=== PATIENT | female | born 1965 | race Caucasian/White ===

== ENCOUNTER 2016-08-07 09:00 | Emergency (ER) | payer BC ==
[2016-08-07] MEDS ORDERED: ADENOSINE 6 MG/2 ML VIAL ONE (09:11)
[2016-08-07] MEDS ORDERED: NS 1,000 ML IV ONE (09:12)
--- NOTE | 2016-08-07 09:16 | EDPHY ---
H & P Stated Complaint: SOB, DIZZY, TIGHT IN CHEST/THROAT- SUDDEN ONSET THIS AM Time Seen by Provider: 08/07/16 09:12 HPI/ROS: CHIEF COMPLAINT: Severe tachycardia, dyspnea, chest pain HISTORY OF PRESENT ILLNESS: The patient presents to the emergency department with complaints of severe tachycardia, dyspnea and chest pain which began acutely 30 minutes prior to arrival. The patient stated that she has had a slight upper respiratory infection with a mild dry nonproductive cough over the past several days. The patient was able to go on a hike today and felt fine prior to coming to work. The patient's symptoms began acutely. The patient has no prior history of arrhythmia. She has no history of thyroid disease. The patient denies asymmetric calf pain, pleuritic chest pain or history of PE or DVT. The patient reports her symptoms of palpitations and dyspnea are severe. REVIEW OF SYSTEMS: A comprehensive 10 point review of systems is otherwise negative aside from elements mentioned in the history of present illness. Source: Patient Exam Limitations: No limitations - Personal History LMP (Females 10-55): Hysterectomy Current Tetanus/Diphtheria Vaccine: Yes Current Tetanus Diphtheria and Acellular Pertussis (TDAP): Yes - Medical/Surgical History Hx Asthma: No Hx Chronic Respiratory Disease: No Hx Diabetes: No Hx Cardiac Disease: No Hx Renal Disease: No Hx Cirrhosis: No Hx Alcoholism: No Hx HIV/AIDS: No Hx Splenectomy or Spleen Trauma: No Other PMH: PMH- DENIES. PSH- hysterectomy, Shoulder, Knee - Social History Smoking Status: Never smoked - Physical Exam Exam: General Appearance: Alert, mild respiratory distress Eyes: Pupils equal and round no pallor or injection ENT, Mouth: Mucous membranes moist Respiratory: There are no retractions, lungs are clear to auscultation Cardiovascular: Tachycardic with heart rate greater than 180 Gastrointestinal: Abdomen is soft and nontender, no masses, bowel sounds normal Neurological: A&O, normal motor function, normal sensory exam, normal cranial nerves Skin: Warm and dry, no rashes Musculoskeletal: Neck is supple nontender Extremities: symmetrical, full range of motion Constitutional: Initial Vital Signs Temperature (C) 36.4 C 08/07/16 09:00 Heart Rate 204 H 08/07/16 09:00 Respiratory Rate 20 08/07/16 09:00 Blood Pressure 66/49 L 08/07/16 09:00 O2 Sat (%) 99 08/07/16 09:00 O2 Delivery Mode Room Air O2 (L/minute) 2 Allergies/Adverse Reactions: No Known Allergies Allergy (Verified 04/16/16 16:53) Home Medications: Medication Instructions Recorded NK [No Known Home Meds] 08/07/16 Medical Decision Making - Diagnostics EKG Interpretation: EKG: Complete interpretation has been separately recorded in the [employer] archive. Summary impression: Sinus tachycardia, rate 107 Imaging: Chest x-ray PA lateral: Images reviewed by myself, negative for focal infiltrate, heart failure or pneumothorax CT chest pulmonary angiogram: Negative for thromboembolic disease. Images reviewed by myself and discussed with radiologist Dr. Jag Denton ED Course/Re-evaluation: The patient presents to the emergency department with extreme tachycardia with a heart rate of 205. She was brought immediately to the resuscitation room. The patient was placed on a cage clerk noted to be in SVT at approximately 2:00 a.m. and 5-10. Her blood pressure at the time of arrival in the resuscitation room was 120/75. The patient was able to perform a Valsalva maneuver under my direction which resulted in a conversion of her SVT to a sinus rhythm. This sinus rhythm was demonstrated on a post conversion EKG. The patient was noted to have an elevated D-dimer of 2.3. The patient did have a CT pulmonary angiogram which was negative for PE. The patient has no clinical evidence of pneumonia. She has no evidence of heart failure or myocardial infarction. Patient was re-evaluated at 11:15 a.m.. She is feeling much better. At this point time she will be discharged home and follow up with our on-call briquetter operator. Differential Diagnosis: Differential diagnosis considered includes pulmonary embolism, supraventricular tachycardia, atrial fibrillation, myocardial infarction, thyrotoxicosis, pneumonia - Data Points Laboratory Results: Laboratory Results 08/07/16 09:15 08/07/16 09:15 08/07/16 08/07/16 08/07/16 09:15 09:15 09:15 WBC 9.44 10^3/uL 10^3/uL (3.80-9.50) RBC 4.83 10^6/uL 10^6/uL (4.18-5.33) Hgb 16.8 g/dL H g/dL (12.6-16.3) Hct 48.8 % H % (38.0-47.0) MCV 101.0 fL H fL (81.5-99.8) MCH 34.8 pg H pg (27.9-34.1) MCHC 34.4 g/dL g/dL (32.4-36.7) RDW 12.9 % % (11.5-15.2) Plt Count 316 10^3/uL 10^3/uL (150-400) MPV 9.8 fL fL (8.7-11.7) Neut % (Auto) 42.3 % % (39.3-74.2) Lymph % (Auto) 43.0 % % (15.0-45.0) Hudspeth % (Auto) 7.5 % % (4.5-13.0) Eos % (Auto) 6.4 % % (0.6-7.6) Baso % (Auto) 0.6 % % (0.3-1.7) Nucleat RBC Rel Count 0.0 % % (0.0-0.2) Absolute Neuts (auto) 3.99 10^3/uL 10^3/uL (1.70-6.50) Absolute Lymphs (auto) 4.06 10^3/uL H 10^3/uL (1.00-3.00) Absolute Monos (auto) 0.71 10^3/uL 10^3/uL (0.30-0.80) Absolute Eos (auto) 0.60 10^3/uL H 10^3/uL (0.03-0.40) Absolute Basos (auto) 0.06 10^3/uL 10^3/uL (0.02-0.10) Absolute Nucleated RBC 0.00 10^3/uL 10^3/uL (0-0.01) Immature Gran % 0.2 % % (0.0-1.1) Immature Gran # 0.02 10^3/uL 10^3/uL (0.00-0.10) D-Dimer 2.24 ug/mLFEU H ug/mLFEU (0.00-0.50) Sodium 141 mEq/L mEq/L (134-144) Potassium 4.1 mEq/L mEq/L (3.5-5.2) Chloride 101 mEq/L mEq/L (97-110) Carbon Dioxide 25 mEq/l mEq/l (22-31) Anion Gap 15 mEq/L mEq/L (8-16) BUN 12 mg/dL mg/dL (7-23) Creatinine 1.1 mg/dL H mg/dL (0.6-1.0) Estimated GFR 52 Glucose 199 mg/dL H mg/dL (70-100) Calcium 9.8 mg/dL mg/dL (8.5-10.4) Troponin I < 0.012 ng/mL ng/mL (0-0.034) TSH 1.180 uIU/mL uIU/mL (0.465-4.680) Medications Given: Discontinued Medications Sodium Chloride (Ns) 1,000 mls @ 0 mls/hr IV ONCE ONE PRN Reason: Wide Open Stop: 08/07/16 09:13 Last Admin: 08/07/16 09:12 Dose: 1,000 mls Departure - Departure Disposition: Home, Routine, Self-Care Clinical Impression: Supraventricular tachycardia Condition: Good Instructions: Supraventricular Tachycardia (ED) Additional Instructions: 1. Please schedule a follow-up appointment with the briquetter operator you have been referred to for further evaluation of your newly diagnosed supraventricular tachycardia. 2. Please return to the emergency department for any recurrent symptoms. Referrals: Garcia Michaels MD [Medical Doctor] - As per Instructions
[2016-08-07 09:26] LABS: % IMMATURE GRANULYOCYTES 0.2 % (0.0-1.1); ABSOLUTE IMMATURE GRANULOCYTES 0.02 10^3/uL (0.00-0.10); ADD DIFF? NO; ADD MORPH? NO; ADD SCAN? NO; ATYPICAL LYMPHOCYTE FLAG 10 (0-99); FRAGMENT RBC FLAG 0 (0-99); HEMATOCRIT 48.8 % (38.0-47.0); HEMOGLOBIN 16.8 g/dL (12.6-16.3); LEFT SHIFT FLG 0 (0-99); LIPEMIA HEMOLYSIS FLAG 90 (0-99); MEAN CELL HEMOGLOBIN 34.8 pg (27.9-34.1); MEAN CELL HEMOGLOBIN CONCENTR. 34.4 g/dL (32.4-36.7); MEAN PLATELET VOLUME 9.8 fL (8.7-11.7); PLATELET CLUMPS FLAG 0 (0-99); PLATELET COUNT 316 10^3/uL (150-400); RED BLOOD CELL COUNT 4.83 10^6/uL (4.18-5.33); RED CELL DISTRIBUTION WIDTH 12.9 % (11.5-15.2)
[2016-08-07 09:37] LABS: ANION GAP 15 mEq/L (8-16); CALCIUM 9.8 mg/dL (8.5-10.4); CARBON DIOXIDE 25 mEq/l (22-31); CHLORIDE 101 mEq/L (97-110); CREATININE 1.1 mg/dL (0.6-1.0); GLOMERULAR FILTRATION RATE 52; GLUCOSE 199 mg/dL (70-100); POTASSIUM 4.1 mEq/L (3.5-5.2); SODIUM 141 mEq/L (134-144)
[2016-08-07 09:48] LABS: TROPONIN I < 0.012 ng/mL (0-0.034)
[2016-08-07] MEDS ORDERED: IOPAMIDOL (ISOVUE-300) 100 ML BTL IV ONE (10:01)
--- NOTE | 2016-08-07 10:33 | CPEKG ---
Heart Rate: 107 RR Interval: 561 P-R Interval: 192 QRSD Interval: 92 QT Interval: 352 QTC Interval: 470 P Victor: 47 QRS Victor: 51 T Wave Victor: 11 EKG Severity - OTHERWISE NORMAL ECG - EKG Impression: SINUS TACHYCARDIA Electronically Signed By: Luis A Petersen 07-Aug-2016 14:32:06
[2016-08-07] MEDS ORDERED: NS 50 ML IV ONE (11:14)
[2016-08-07] MEDS ORDERED: ALTEPLASE 100 MG/100 ML VIAL IV ONE (11:14)
[2016-08-07] MEDS ORDERED: ALTEPLASE 1 MG/ML SYR IV ONE (11:14)
[2016-08-07 11:38] VITALS: BP 149/115; PULSE 91; RESP 20; TEMP 98.6; O2SAT 94
== END 2016-08-07 11:36 | disposition home or self-care (01) ==
DX: I47.1 Supraventricular tachycardia (principal)
CPT/HCPCS: J0153; Q9967

== ENCOUNTER 2016-12-20 12:30 | Emergency (ER) | payer BC ==
--- NOTE | 2016-12-20 12:49 | CPEKG ---
Heart Rate: 91 RR Interval: 659 P-R Interval: 168 QRSD Interval: 94 QT Interval: 380 QTC Interval: 468 P Sanford: 30 QRS Sanford: 36 T Wave Sanford: 2 EKG Severity - BORDERLINE ECG - EKG Impression: SINUS RHYTHM EKG Impression: PROBABLE LEFT ATRIAL ABNORMALITY Electronically Signed By: Bakari Glasgow 21-Dec-2016 13:57:16
[2016-12-20 12:58] LABS: % IMMATURE GRANULYOCYTES 0.1 % (0.0-1.1); ABSOLUTE IMMATURE GRANULOCYTES 0.01 10^3/uL (0.00-0.10); ADD DIFF? NO; ADD MORPH? NO; ADD SCAN? NO; ATYPICAL LYMPHOCYTE FLAG 0 (0-99); FRAGMENT RBC FLAG 0 (0-99); HEMATOCRIT 44.5 % (38.0-47.0); HEMOGLOBIN 15.2 g/dL (12.6-16.3); LEFT SHIFT FLG 0 (0-99); LIPEMIA HEMOLYSIS FLAG 90 (0-99); MEAN CELL HEMOGLOBIN 34.5 pg (27.9-34.1); MEAN CELL HEMOGLOBIN CONCENTR. 34.2 g/dL (32.4-36.7); MEAN CELL VOLUME 101.1 fL (81.5-99.8); MEAN PLATELET VOLUME 9.6 fL (8.7-11.7); PLATELET CLUMPS FLAG 0 (0-99); PLATELET COUNT 258 10^3/uL (150-400); RED CELL DISTRIBUTION WIDTH 13.3 % (11.5-15.2)
[2016-12-20] MEDS ORDERED: LORazepam 2 MG/ML INJ IVP ONE (13:01)
--- NOTE | 2016-12-20 13:04 | EDPHY ---
HPI/HX/ROS/PE/MDM Narrative: CHIEF COMPLAINT: Rapid heart rate, Neck fullness HPI: The patient is a 51-year-old female who complains of rapid heart rate today. The patient states she developed a fullness to the right side of her throat. This sensation radiates into her jaw and shoulder and causes subsequent headache. She attributed her symptoms to hypertension, though her pressures have remained around 140/90. Today she felt her heart rate was racing. According to her FitBit her HR was 80 at rest and increased to 113 on the car ride here. The patient had two episodes of tachycardia within the past year that resolved without intervention. She had a stress test done two weeks ago that was normal. REVIEW OF SYSTEMS: Aside from elements discussed in the HPI, a comprehensive 10-point review of systems was reviewed and is negative. PMH: Tachycardia x2 episodes. PSH: Hysterectomy SOCIAL HISTORY: . PHYSICAL EXAM: General: Patient is alert, in no acute distress. ENT: Eyes are normal to inspection. ENT inspection normal. Neck: Normal inspection. Full range of motion. Respiratory: No respiratory distress. Breath sounds normal bilaterally. Cardiovascular: Regular rate and rhythm. Strong peripheral pulses. Abdomen: The abdomen is nontender to palpation. There are no peritoneal signs. There are normal bowel sounds. Back: Normal to inspection. No tenderness to palpation. Skin: Normal color. No rash. Warm and dry. Extremities: Normal appearance. Full range of motion. Neuro: Oriented x3. Normal motor function. Normal sensory function. Portions of this note were transcribed by a medical educator. I personally performed a history, physical exam, medical decision making, and confirmed accuracy of information the transcribed note. ED Course: Patient presents with fullness in right neck for the past few days. She has associated headache and noticed increased heart rate today. BP on arrival 174/ 111, Pulse 98. Patient received 1mg Ativan PO. Plan to check lab work, chest x- ray, and EKG. EKG was ordered and interpreted by myself: Sinus rhythm, rate 91. Please see [employer] system for official reading. Troponin is normal. Chest x-ray is negative. Patient has negative workup, plan to discharge home. 1405: I discussed findings and reevaluated the patient. She is completely asymptomatic after Ativan and feels much better. I offered further testing, patient declines and would like to be discharged home. MDM: This patient presents with atypical chest pain that has been constant for at least 1 day. Performed an extensive workup including EKG, troponin, chest x- ray and other labs, all of which are negative. The etiology of her symptoms is unclear, but I see no evidence for acute coronary syndrome, pulmonary embolus, pneumonia, thoracic aortic dissection. The patient's symptoms completely resolved with Ativan, so I do suspect there is some anxiety component. I did offer the patient admission and observation in the hospital but she refuses. We discussed the fact that although the patient's tests are normal, I am unable to determine a clear etiology for her symptoms. She will be given referral to Cardiology. We discussed strict return precautions. - Data Points Imaging Results: Imaging Impressions Chest X-Ray 12/20/16 12:52 Impression: Normal chest. Imaging: Discussed imaging studies w/ weight caller Radiologist, I viewed and interpreted images myself Laboratory Results: Laboratory Results 12/20/16 12:50 12/20/16 12:50 12/20/16 12/20/16 12/20/16 12:50 12:50 12:50 WBC 7.43 10^3/uL 10^3/uL (3.80-9.50) RBC 4.40 10^6/uL 10^6/uL (4.18-5.33) Hgb 15.2 g/dL g/dL (12.6-16.3) Hct 44.5 % % (38.0-47.0) MCV 101.1 fL H fL (81.5-99.8) MCH 34.5 pg H pg (27.9-34.1) MCHC 34.2 g/dL g/dL (32.4-36.7) RDW 13.3 % % (11.5-15.2) Plt Count 258 10^3/uL 10^3/uL (150-400) MPV 9.6 fL fL (8.7-11.7) Neut % (Auto) 61.4 % % (39.3-74.2) Lymph % (Auto) 27.7 % % (15.0-45.0) Murray % (Auto) 7.7 % % (4.5-13.0) Eos % (Auto) 2.7 % % (0.6-7.6) Baso % (Auto) 0.4 % % (0.3-1.7) Nucleat RBC Rel Count 0.0 % % (0.0-0.2) Absolute Neuts (auto) 4.56 10^3/uL 10^3/uL (1.70-6.50) Absolute Lymphs (auto) 2.06 10^3/uL 10^3/uL (1.00-3.00) Absolute Monos (auto) 0.57 10^3/uL 10^3/uL (0.30-0.80) Absolute Eos (auto) 0.20 10^3/uL 10^3/uL (0.03-0.40) Absolute Basos (auto) 0.03 10^3/uL 10^3/uL (0.02-0.10) Absolute Nucleated RBC 0.00 10^3/uL 10^3/uL (0-0.01) Immature Gran % 0.1 % % (0.0-1.1) Immature Gran # 0.01 10^3/uL 10^3/uL (0.00-0.10) Sodium 140 mEq/L mEq/L (134-144) Potassium 3.9 mEq/L mEq/L (3.5-5.2) Chloride 102 mEq/L mEq/L (97-110) Carbon Dioxide 24 mEq/l mEq/l (22-31) Anion Gap 14 mEq/L mEq/L (8-16) BUN 12 mg/dL mg/dL (7-23) Creatinine 0.8 mg/dL mg/dL (0.6-1.0) Estimated GFR > 60 Glucose 88 mg/dL mg/dL (70-100) Calcium 9.6 mg/dL mg/dL (8.5-10.4) Troponin I < 0.012 ng/mL ng/mL (0-0.034) TSH Pending Medications Given: Discontinued Medications Lorazepam (Ativan Injection) 1 mg IVP EDNOW ONE Stop: 12/20/16 13:02 Last Admin: 12/20/16 13:46 Dose: 1 mg General Time Seen by Provider: 12/20/16 12:51 Initial Vital Signs: Initial Vital Signs Temperature (C) 36.9 C 12/20/16 12:34 Heart Rate 98 12/20/16 12:34 Respiratory Rate 16 12/20/16 12:34 Blood Pressure 174/111 H 12/20/16 12:34 O2 Sat (%) 95 12/20/16 12:34 O2 Delivery Mode Room Air O2 (L/minute) 2 Allergies/Adverse Reactions: No Known Allergies Allergy (Verified 04/16/16 16:53) Home Medications: Medication Instructions Recorded LORazepam [Ativan (*)] 1 mg PO ONCE PRN #5 tab 12/20/16 Departure - Departure Disposition: Home, Routine, Self-Care Clinical Impression: Palpitations Condition: Good Instructions: Palpitations (ED) Additional Instructions: Follow-up with your primary doctor if symptoms persist. Return to the Emergency Department for fever, chest pain, shortness of breath, increasing pain or other worsening of condition. Follow up with a screen writer for further testing, as soon as possible, within one week. Referrals: [facility] [Provider Group] - As per Instructions Prescriptions: LORazepam [Ativan (*)] 1 mg PO ONCE PRN #5 tab PRN Reason: Anxiety Report Scribed for: Lion Aaron Report Scribed by: Chiara Wetzel Date of Report: 12/20/16 Time of Report: 13:04
[2016-12-20 13:16] LABS: ANION GAP 14 mEq/L (8-16); CALCIUM 9.6 mg/dL (8.5-10.4); CARBON DIOXIDE 24 mEq/l (22-31); CHLORIDE 102 mEq/L (97-110); CREATININE 0.8 mg/dL (0.6-1.0); GLOMERULAR FILTRATION RATE > 60; GLUCOSE 88 mg/dL (70-100); POTASSIUM 3.9 mEq/L (3.5-5.2); SODIUM 140 mEq/L (134-144)
[2016-12-20 13:27] LABS: TROPONIN I < 0.012 ng/mL (0-0.034)
[2016-12-20 15:17] VITALS: BP 139/89; PULSE 83; RESP 20; TEMP 97.9; O2SAT 94
== END 2016-12-20 15:00 | disposition home or self-care (01) ==
DX: R00.2 Palpitations (principal)
CPT/HCPCS: 96374; J2060